=== PATIENT | male | born 1950 | race Caucasian/White ===

== ENCOUNTER 2016-11-11 09:52 | Emergency (ER) | payer OTHER ==
[2016-11-11] MEDS ORDERED: Benzocaine 20% Topical Spray UD MUCMEM ONE (10:11)
[2016-11-11] MEDS ORDERED: Ketorolac 60 MG/2 ML SDV IM ONE (10:11)
[2016-11-11] MEDS ORDERED: Lidocaine 2% Viscous Solution 15 ML Cup PO ONE (10:11)
--- NOTE | 2016-11-11 10:17 | EDM.PDOC ---
ED HPI GENERAL MEDICAL PROBLEM - General Chief Complaint: ENT Problem Stated Complaint: ABSCESS TOOTH Time Seen by Provider: 11/11/16 09:59 - History of Present Illness INITIAL COMMENTS - FREE TEXT/NARRATIVE: HISTORY AND PHYSICAL: History of present illness: The patient is a 66-year-old male who presents with complaints of pain to the right side of his face that started yesterday as well as left second toe pain. The patient states that the pain starts at his lower jaw area and seems to radiate up to his right year and he feels like the right side of his face is swollen. He has chronic nasal congestion and has sleep apnea for which he uses a CPAP. He has no chest pain or shortness of breath no fevers or chills but does also state that his throat feels sore as well. He has no cough or congestion and does have a history of gout but usually occurs in his big toe. Patient initially presented for the facial pain and was concerned that he may have a problem with one of his teeth as it is very sensitive today. As an aside he would like me to evaluate his toe as well but feels it might just be his gout again. He has medications to prevent gout attacks but he doesn't like taking it. Patient denies any trauma to his face or his toe Review of systems: As per history of present illness and below otherwise all systems reviewed and negative. Past medical history: As per history of present illness and as reviewed below otherwise noncontributory. Surgical history: As per history of present illness and as reviewed below otherwise noncontributory. Social history: No reported history of drug or alcohol abuse. Family history: As per history of present illness and as reviewed below otherwise noncontributory. Physical exam: General: Well-developed well-nourished male who is nontoxic and speaking clearly and easily and vital signs have been noted by me. There is no gross visible facial swelling on the right side of his face and he speaks clearly and easily without hoarse or muffled voice HEENT: Atraumatic, normocephalic, pupils reactive, negative for conjunctival pallor or scleral icterus, mucous membranes moist, throat clear with no erythema swelling or exudates, there is no cervical adenopathy or nuchal rigidity, neck supple, nontender, trachea midline. There is no gross abdominal swelling or tooth decay seen but at to [address] 31 there is discrete sensitivity to simple touch and tap which the patient says reproduces the pain. At palpation of his mandible and maxilla on the right there is no fluctuance crepitus or gross swelling appreciated. TM on the right is dulled slightly. TM on the left is within normal limits Lungs: Clear to auscultation, breath sounds equal bilaterally, chest nontender. Heart: S1S2, regular, negative for clicks, rubs, or JVD. Abdomen: Soft, nondistended, nontender.NABS. Genitourinary: Deferred. Rectal: Deferred. Extremities: Atraumatic, negative for cords or calf pain. Neurovascular unremarkable. There is mild tenderness at palpation of the second MTP joint on the left foot without any warmth erythema or swelling. There is no palpable bony deformities here and neurovascular is intact. Neuro: Awake, alert, oriented. Cranial nerves II through XII unremarkable. Cerebellum unremarkable. Motor and sensory unremarkable throughout. Exam nonfocal. Diagnostics: [] Therapeutics: Dental balls I discussed with the patient that he would need to follow up with a dentist to get dental x-rays of the tooth that is sensitive and painful and we will give him dental balls for home. I will also put him on antibiotics. I will prescribe diclofenac/anti-inflammatories to help with the dental pain as well as with his potential gouty toe pain. I will give him referrals for podiatry at this point I do not feel that steroids are indicated and he has medications to help prevent gout attacks but he does not take them. I will encourage visiting primary care to discuss this. Impression: Dental pain right lower jaw, left second toe pain Definitive disposition and diagnosis as appropriate pending reevaluation and review of above. Right Face Pain Score (Numeric/FACES): 6 - Related Data Allergies Allergy/AdvReac Type Severity Reaction Status Date / Time No Known Allergies Allergy Verified 11/11/16 10:03 Home Meds: Home Meds . [No Known Home Meds] 11/11/16 [History] Past Medical History Musculoskeletal History: Reports: Gout - Past Surgical History GI Surgical History: Reports: Cholecystectomy Social & Family History - Family History Family Medical History: Noncontributory - Tobacco Use Smoking Status *Q: Never Smoker - Caffeine Use Caffeine Use: Reports: Coffee Other Caffeine Use: 5+ drinks daily - Recreational Drug Use Recreational Drug Use: No ED ROS GENERAL - Review of Systems Review Of Systems: ROS reveals no pertinent complaints other than HPI. ED EXAM, GENERAL - Physical Exam Exam: See Below (See dictation) Course - Vital Signs Last Recorded V/S: Last Vital Signs Temp 37.2 C 11/11/16 10:04 Pulse 77 11/11/16 10:04 Resp 16 11/11/16 10:04 BP 135/77 11/11/16 10:04 Pulse Ox 95 11/11/16 10:04 - Orders/Labs/Meds Orders: Active Orders 24 hr Category Date Time Status Benzocaine [Hurricaine One 20%] Med 11/11/16 10:11 Once 2 each MUCMEM ONETIME ONE Ketorolac [Toradol] Med 11/11/16 10:11 Once 60 mg IM ONETIME ONE Lidocaine 2% [Xylocaine 2% Viscous] Med 11/11/16 10:11 Once 15 ml PO ONETIME ONE Departure - Departure Time of Disposition: 10:17 Disposition: Home, Self-Care 01 Condition: good Clinical Impression: Pain, dental Toe pain Qualifiers: Laterality: left Qualified Code(s): M79.675 - Pain in left toe(s) Forms: ED Department Discharge Additional Instructions: The following information is given to patients seen in the emergency department who are being discharged to home. This information is to outline your options for follow-up care. We provide all patients seen in our emergency department with a follow-up referral. The need for follow-up, as well as the timing and circumstances, are variable depending upon the specifics of your emergency department visit. If you don't have a primary care physician on staff, we will provide you with a referral. We always advise you to contact your personal physician following an emergency department visit to inform them of the circumstance of the visit and for follow-up with them and/or the need for any referrals to a consulting specialist. The emergency department will also refer you to a specialist when appropriate. This referral assures that you have the opportunity for followup care with a specialist. All of these measure are taken in an effort to provide you with optimal care, which includes your followup. Under all circumstances we always encourage you to contact your private physician who remains a resource for coordinating your care. When calling for followup care, please make the office aware that this follow-up is from your recent emergency room visit. If for any reason you are refused follow-up, please contact the [facility] emergency department at and ask to speak to the emergency department charge nurse. [facility] Primary care- Internal Medicine and Family [address] [address] Use ice to face for swelling and pain and use a dental balls given to you today in the ER as shown. Take antibiotics as directed and use anti-inflammatory medication for both your 2 and your toe as needed and desired. Please followup with local dentist for definitive care and treatment and also followup with your primary care physician next week. Return to ER as needed and as discussed - My Orders Last 24 Hours: My Active Orders 11/11/16 10:11 Benzocaine [Hurricaine One 20%] 2 each MUCMEM ONETIME ONE Ketorolac [Toradol] 60 mg IM ONETIME ONE Lidocaine 2% [Xylocaine 2% Viscous] 15 ml PO ONETIME ONE - Assessment/Plan Last 24 Hours: My Active Orders 11/11/16 10:11 Benzocaine [Hurricaine One 20%] 2 each MUCMEM ONETIME ONE Ketorolac [Toradol] 60 mg IM ONETIME ONE Lidocaine 2% [Xylocaine 2% Viscous] 15 ml PO ONETIME ONE
[2016-11-11 10:42] VITALS: BP 138/83
== END 2016-11-11 10:44 | disposition home or self-care (01) ==
LOC: MW.ED 09:52
DX: K08.9 Disorder of teeth and supporting structures, unspecified (principal); R68.84 Jaw pain; M79.675 Pain in left toe(s); M10.9 Gout, unspecified; G47.30 Sleep apnea, unspecified
CPT/HCPCS: 96372; 99282; A9270; J1885; 99283